=== PATIENT | female | born 1985 | race Hispanic/Latino ===

== ENCOUNTER 2020-08-26 10:10 | Outpatient (CLI) | payer MEDICAID ==
[2020-08-26 10:52] LABS: Basophils % (Auto) 0.4 % (0.0-1.8); Eosinophils # (Auto) 0.1 K/mm3 (0.0-0.4); Eosinophils % (Auto) 1.1 % (0.0-4.3); Hematocrit 38.8 % (30.3-42.9); Hemoglobin 13.2 gm/dl (10.1-14.3); Lymphocytes % (Auto) 22.5 % (13.4-35.0); Mean Corpuscular HGB Conc 34 % (30-34); Mean Corpuscular Volume 82 fl (79-97); Monocytes # (Auto) 0.5 K/mm3 (0.0-0.8); Monocytes % (Auto) 5.9 % (0.0-7.3); Platelet Count 187 K/mm3 (140-440); Red Blood Count 4.72 M/mm3 (3.65-5.03); Red Cell Distribution Width 13.7 % (13.2-15.2)
[2020-08-26 11:19] LABS: % Iron Saturation 23.45 %; Alanine Aminotransferase 13 units/L (7-56); Albumin 4.3 g/dL (3.9-5); Blood Urea Nitrogen 14 mg/dL (7-17); Calcium 9.2 mg/dL (8.4-10.2); Chol/HDL Ratio 2.76 %; HDL Cholesterol 52 mg/dL (40-59); Hemolysis Index 2; Iron 68 ug/dL (37-170); LDL Cholesterol,Direct 94 mg/dL (50-130); Total Iron Binding Capacity 290 mcg/dL (250-450)
[2020-08-26 11:20] LABS: BUN/Creatinine Ratio 20
== END 2020-08-26 10:11 | disposition home or self-care (01) ==
LOC: LAB 10:10
PROVIDERS: ATTEND Surgery
DX: K30 Functional dyspepsia (principal); E66.01 Morbid (severe) obesity due to excess calories; E11.9 Type 2 diabetes mellitus without complications
CPT/HCPCS: 36415; 80053; 80061; 82306; 82607; 82728; 83036; 83550; 84443; 85025; 85730

== ENCOUNTER 2020-09-06 06:57 | Outpatient (CLI) | payer MEDICAID ==
--- NOTE | 2020-09-06 09:06 | Fluoroscopy Report ---
UPPER GI HISTORY: FUNCTIONAL DYSPEPSIA. TECHNIQUE: Single and double contrast barium technique utilized to evaluate the esophagus, stomach, and duodenal C-loop. FINDINGS: To begin the exam, swallowing was evaluated in the lateral position under direct fluorosco py. Swallowing was normal. No mucosal irregularity, mass, mass effect, or critical stenosis. There were no abnormal tertiary c ontractions as seen with dysmotility. No gastroesophageal reflux. IMPRESSION: Unremarkable exam. Fluoroscopic time: 2.4 minutes Number of fluoroscopic images: 21 Signer Name: Glen Faye Jr, MD Signed: 09/06/2020 9:02 AM Workstation Name: [id number]
== END 2020-09-06 06:58 | disposition home or self-care (01) ==
LOC: FLUORO 06:57
PROVIDERS: ATTEND Surgery
DX: K30 Functional dyspepsia (principal)
CPT/HCPCS: 74246

== ENCOUNTER 2020-09-14 07:08 | Day surgery (SDC) | payer MEDICAID ==
[~2020-09-14 07:08] MED LIST: SODIUM CHLORIDE 0.9% 1000 ML 1,000 ML IV SCH
--- NOTE | 2020-09-14 07:56 | Anesthesia Day of Surgery ---
Anesthesia Day of Surgery - Day of Surgery Patient Examined: Yes Patient H&P Reviewed: Yes Patient is NPO: Yes
--- NOTE | 2020-09-14 07:57 | Anesthesia Consultation ---
Anesthesia Consult and Med Hx Date of service: 09/14/20 - Airway Anesthetic Teeth Evaluation: Good ROM Head & Neck: Adequate Mental/Hyoid Distance: Adequate Mallampati Class: Class II Intubation Access Assessment: Good - Pre-Operative Health Status ASA Pre-Surgery Classification: ASA3 Proposed Anesthetic Plan: MAC - Pulmonary Hx Sleep Apnea: No - Cardiovascular System Hx Hypertension: No - Gastrointestinal Hx Gastroesophageal Reflux Disease: No - Endocrine Hx Renal Disease: No Hx Non-Insulin Dependent Diabetes: No - Other Systems Hx Obesity: Yes
[2020-09-14] MEDS ORDERED: ONDANSETRON 4 MG/2 ML INJ ONE (08:15)
[2020-09-14] MEDS ORDERED: LIDOCAINE MPF (2%) 20 MG/1 ML VIAL 5 ML ONE (08:15)
[2020-09-14] MEDS ORDERED: propofoL 200 MG/20 ML VIAL IV ONE (08:16)
[2020-09-14] MEDS ORDERED: fentaNYL 100 MCG/2 ML INJ ONE (08:16)
--- NOTE | 2020-09-14 08:21 | Discharge Summary ---
Providers - Providers Date of Admission: 09/14/2020 Date of discharge: 09/14/20 Attending physician: AVNI ROLLE MD Hospitalization Reason for admission: egd Condition: Good Procedures: egd with bx Hospital course: Pt presented for a pre-op EGD as part of planning for up coming bariatric surgery. Procedure was uneventful and pt recovered well and was discharged to home. Disposition: - TO HOME OR SELFCARE Final Discharge Diagnosis (Prints w/discharge instructions): morbid obesity, dys pepsia Core Measure Documentation - Palliative Care Palliative Care/ Comfort Measures: Not Applicable - Core Measures Any of the following diagnoses?: none Exam - Physical Exam Narrative exam: unchanged from pre-op Plan Diet: low carbohydrate Follow up with: FORD DOYLE [Other] - 7 Days
--- NOTE | 2020-09-14 08:22 | Operative Report ---
Operative Report Operative Report: DATE: 09/14/2020 SURGERY: Upper endoscopy. SURGEON: Yamileth Huggins M.D. PROCEDURE: EGD with biopsy PRE OP DX: morbid obesity, GERD POST OP DX: morbid obesity, GERD TYPE OF ANESTHESIA: MAC. ESTIMATED BLOOD LOSS: None. COMPLICATIONS: None. SPECIMENS REMOVED: antral biopsy FINDINGS: 1. Small hiatal hernia. 2. Otherwise, normal esophagus, stomach and first portion of duodenum. INDICATIONS:INDICATION FOR PROCEDURE: Patient is a 35-year-old female with a long history of morbid obesity. She is planned to have a weight loss procedure and is here for preoperative planning EGD. PROCEDURE DETAILS: After consent was reviewed, patient was taken back to the operating room where patient was placed in the left lateral decubitus position and a bite block was placed in the mouth. After a time-out was called, MAC anesthesia was initiated. I then passed the endoscope into her oropharynx, into her esophagus, visualized the entire esophagus, which was all within normal limits. Z-line was noted to about 40cm from incisors. I then visualized the stomach and the first portion of the duodenum and there were no abnormalities I could clearly visualize. A cold forceps biopsy of the antrum was taken and will be sent to pathology to evaluate for H.pylori. I then retroflexed the scope in the stomach and visualized the hiatus and I could see a small hiatal hernia. I then desufflated the stomach and removed the endoscope. Patient tolerated procedure well and was transferred to recovery room in good and stable condition.
[2020-09-14 09:33] VITALS: BP 144/91
--- NOTE | 2020-09-14 15:02 | Post Anesthesia Evaluation ---
- Post Anesthesia Evaluation Patient Participated: Yes Airway Patent: Yes Stable Respiratory Function: Yes Nausea/Vomiting: No Temp > 96.8F: Yes Pain Manageable: Yes Adequeate Hydration: Yes Anesthesia Complications: No Block Receding Appropriately: Not Applicable Patient on Ventilator: No
== END 2020-09-14 07:09 | disposition home or self-care (01) ==
LOC: GIO 07:08
PROVIDERS: ATTEND Surgery
DX: K21.9 Gastro-esophageal reflux disease without esophagitis (principal); E66.01 Morbid (severe) obesity due to excess calories; K44.9 Diaphragmatic hernia without obstruction or gangrene; K30 Functional dyspepsia; Z79.899 Other long term (current) drug therapy; Z68.42 Body mass index [BMI] 45.0-49.9, adult
CPT/HCPCS: 43239; 81025; 88305; 88342; J2405; J2704; J3010; J7030

== ENCOUNTER 2020-10-11 07:06 | Inpatient (IN) | payer MEDICAID ==
[~2020-10-11 07:06] MED LIST changes: +BUPIVACAINE/PF (0.25%) 2.5 MG/ML 30 ML VIAL INFILTRATI ONE; +ENOXAPARIN 40 MG/0.4 ML INJ SUB-Q NR; +LIDOCAINE 1%/EPINEPHRINE 1:100,000 VIAL (20 ML) INFILTRATI ONE; -SODIUM CHLORIDE 0.9% 1000 ML 1,000 ML IV SCH; +SODIUM CHLORIDE 0.9% IRR 1,500 ML BOTTLE IR ONE; +ceFAZolin/Water 2 GM/20 ML 2 GM/20 ML SYRINGE IV NR; +metroNIDAZOLE/NS 500 MG/100 ML 500 MG/100 ML BAG IV NR
[2020-10-11] MEDS ORDERED: LACTATED RINGERS 1,000 ML IV SCH (08:45)
[2020-10-11] MEDS ORDERED: ENOXAPARIN 40 MG/0.4 ML INJ SUB-Q NR (09:00)
[2020-10-11] MEDS ORDERED: GABAPENTIN 500 MG/10 ML ORAL LIQD PO SCH (09:00)
[2020-10-11] MEDS ORDERED: ACETAMINOPHEN IV 1,000 MG/100 ML BOTTLE IV NR (09:00)
--- NOTE | 2020-10-11 09:18 | Anesthesia Day of Surgery ---
Anesthesia Day of Surgery - Day of Surgery Patient Examined: Yes Patient H&P Reviewed: Yes Patient is NPO: Yes
[2020-10-11] MEDS ORDERED: HYDROmorphone 1 MG/1 ML INJ IV PRN (09:30)
[2020-10-11] MEDS ORDERED: ONDANSETRON 4 MG/2 ML INJ IV PRN (09:30)
[2020-10-11] MEDS ORDERED: SUGAMMADEX SODIUM 200 MG/2 ML VIAL IV ONE (09:59)
[2020-10-11] MEDS ORDERED: MAGNESIUM SULFATE 2 GM/50 ML BAG IV ONE (09:59)
[2020-10-11] MEDS ORDERED: SCOPOLAMINE TRANSDERMAL PATCH 72 HR TD SCH (10:00)
[2020-10-11] MEDS ORDERED: MIDAZOLAM 2 MG/2 ML INJ IV NR (10:00)
[2020-10-11] MEDS ORDERED: ROCURONIUM 50 MG/5 ML INJ IV ONE ×2 (10:08→10:28)
[2020-10-11] MEDS ORDERED: BUPIVACAINE/PF (0.25%) 2.5 MG/ML 30 ML VIAL INFILTRATI ONE ×2 (10:26→11:34)
[2020-10-11] MEDS ORDERED: LIDOCAINE 1%/EPINEPHRINE 1:100,000 VIAL (20 ML) INFILTRATI ONE ×2 (10:26→11:34)
[2020-10-11] MEDS ORDERED: KETAMINE/STERILE WATER 50 MG/ML SYRINGE ONE (10:28)
[2020-10-11] MEDS ORDERED: LIDOCAINE MPF (2%) 20 MG/1 ML VIAL 5 ML ONE (10:28)
[2020-10-11] MEDS ORDERED: KETOROLAC 30 MG/1 ML INJ ONE (10:28)
[2020-10-11] MEDS ORDERED: ONDANSETRON 4 MG/2 ML INJ ONE (10:28)
[2020-10-11] MEDS ORDERED: PHENYLEPHRINE/NS 1,000 MCG/10 ML SYRINGE (OR USE) IV ONE (10:30)
[2020-10-11] MEDS ORDERED: SODIUM CHLORIDE 0.9% IRR 1,500 ML BOTTLE IR ONE (11:34)
[2020-10-11] MEDS ORDERED: SODIUM CHLORIDE 0.9% IRRIG SOLN 2000 ML IR ONE (12:26)
--- NOTE | 2020-10-11 13:19 | Operative Report ---
Operative Report Operative Report: DATE: 10/11/2020 Surgeon: Yamileth Huggins MD Debug Technician surgeon: Regis Benitez CSA md Pre-op Dx: morbid obesity Post-op Dx: morbid obesity Procedure: 1. laparoscopic sleeve gastrectomy, 2. hiatal hernia repair Anesthesia: GETA and TAP block EBL: <10ml Specimen: gastric remnant Complication: none immediate Indication: 35 year old female with a history of morbid obesity . Pt is here for sleeve gastrectomy for weight loss to achieve healthier weight and improve or resolve his co-morbidities. She expressed understanding of the risks and benefits. PROCEDURE IN DETAIL: After consent was reviewed, patient was taken back to the operating room, where patient was placed supine on the bed with both arms out. The patient's legs were doubly strapped to the bed. Patient had a foot board in place. Patient had a body warmer placed by anesthesia. General anesthesia was induced with successful endotracheal intubation. Patient was then prepped and draped in normal sterile surgical fashion. After a time-out was called, I made a stab incision in the left subcostal area and placed a Veress needle through this incision and insufflated the abdomen to 18 mmHg pressure. I then counted down a handsbreadth below the xiphoid process in the midline and slightly left lateral injected local anesthetic and made about 1 cm transverse incision. I then used a 5-mm Optiview trocar to enter into the abdomen. There was no gross injury to any intra-abdominal structures. I then placed a 30-degree scope through this port and inspected the abdomen. I then placed a 8-mm port in the right upper quadrant, and 1 5mm in the epigastric area below the costovertebral angle. I then placed a 15-mm port about a handsbreadth in the right mid abdomen. After which a 5mm port was placed in left upper quadrant port along the anterior axillary line in a similar fashion. A liver retractor was placed to the epigastric port to elevate the left lateral lobe and liver. There was a small hiatal hernia appreciated that was accentuated with right and left crural dissection. Hiatal hernia sac was dissected from the crura until the GE junction was resting about 2cm below the level of the diaphragm without tension. An anterior crura-plasty was preformed a U-stitch using surgidac suture. The anterior gastric fat pad was excised. Starting approximately 6 cm proximal to the pylorus, using a LigaSure device the short gastrics were taken all the way to the left sohail. Once the lateral portion of the stomach was mobile anesthesia passed a 40 Turkmen bougie along the medial aspect to act as a stent. Using serial firings of endoscopic stapler to gold, followed by 4 blue, the lateral portion of the stomach was transected making sure to did not close to the 2 cm to the incisura. All staple loads were supported with Ethicon buttress strips. The sleeve stomach was seen to be without kink obstruction or twisting. The pr essure was decreased to 10 mmHg. The staple line was inspected for approximately 5 minutes. There was no significant bleeding appreciated except for a slight loose at the most distal portion of the staple line. Bleeding was minimal and easily controlled with minimal cautery. Tisseel was then sprayed along the entirety of the staple line. The liver retractor was removed. A TAP block was performed with 60ml of 0.25% marcaine along bilateral mid axillary lines starting from the subcostal region to just below the level of the umbilicus This was after the gastric remnant was grasped and pulled into the 15 mm trocar site. The stomach was extracted via the 15 mm trocar site. After the fascia had to be stretched with a Daisha clamp to easily remove the stomach, the fascia was closed using a renny kashif device at the level of the fascia with an 0 PDS. trocars were removed under direct visualization. All skin incisions were closed with 4-0 Monocryl followed by Dermabond. Patient was awoken, extubated, and taken to recovery stable condition. All counts were correct.
[2020-10-11] MEDS ORDERED: dexAMETHasone 20 MG/5 ML VIAL ONE (13:25)
[2020-10-11] MEDS ORDERED: SIMETHICONE 80 MG CHEW TAB PO PRN (13:30)
[2020-10-11] MEDS ORDERED: hydrALAZINE 20 MG/1 ML INJ IV PRN (13:30)
[2020-10-11] MEDS ORDERED: MORPHINE 2 MG/1 ML INJ IV PRN (13:30)
[2020-10-11] MEDS: KETOROLAC 30 MG/1 ML INJ IV SCH ×2 (14:08→20:04)
[2020-10-11] MEDS: HYDROmorphone 1 MG/1 ML INJ IV PRN ×2 (14:14→14:29)
[2020-10-11] MEDS: ACETAMINOPHEN IV 1,000 MG/100 ML BOTTLE IV SCH ×2 (14:59→20:05)
[2020-10-11] MEDS: PANTOPRAZOLE 40 MG INJ IV SCH (16:28)
[2020-10-11] MEDS: METOCLOPRAMIDE 10 MG/2 ML INJ IV PRN ×2 (16:28→23:33)
[2020-10-11] MEDS: ONDANSETRON 4 MG/2 ML INJ IV PRN ×2 (20:04→20:08)
[2020-10-11] MEDS: LACTATED RINGERS 1,000 ML IV SCH (20:07)
[2020-10-12] MEDS: ACETAMINOPHEN IV 1,000 MG/100 ML BOTTLE IV SCH ×2 (01:59→07:10)
[2020-10-12] MEDS: KETOROLAC 30 MG/1 ML INJ IV SCH ×3 (02:00→14:13)
[2020-10-12] MEDS: LACTATED RINGERS 1,000 ML IV SCH ×2 (02:15→10:22)
[2020-10-12 04:52] LABS: Basophils % (Auto) 0.1 % (0.0-1.8); Hematocrit 36.3 % (30.3-42.9); Hemoglobin 12.2 gm/dl (10.1-14.3); Lymphocytes # (Auto) 1.3 K/mm3 (1.2-5.4); Lymphocytes % (Auto) 11.7 % (13.4-35.0); Mean Corpuscular HGB Conc 34 % (30-34); Mean Corpuscular Volume 83 fl (79-97); Monocytes # (Auto) 0.8 K/mm3 (0.0-0.8); Monocytes % (Auto) 7.5 % (0.0-7.3); Platelet Count 130 K/mm3 (140-440); Red Blood Count 4.35 M/mm3 (3.65-5.03); Red Cell Distribution Width 13.4 % (13.2-15.2)
[2020-10-12 05:11] LABS: Alanine Aminotransferase 32 units/L (7-56); Albumin 3.8 g/dL (3.9-5); Blood Urea Nitrogen 12 mg/dL (7-17); Calcium 8.5 mg/dL (8.4-10.2); Hemolysis Index 1
[2020-10-12 05:24] LABS: BUN/Creatinine Ratio 20
--- OUTSIDE RECORDS SUMMARY | 2020-10-12 08:12 | External Medical Summary ---
:1985 Author Organization [facility], [facility] Address [address] [place] [id number] Care Team Providers Name Role Phone Yamileth Huggins Unavailable [phone] PROBLEMS Type Condition ICD9-CM [id number]-[id number] Onset Condition W/U Status Risk SNOM ED Notes Code Code Dates Status Code Problem Dietary Z71.3 Active confirmed 583816146 counseling and surveillance Problem Gastro-esopha K21.9 Active confirmed 823028 005 geal reflux disease without esophagitis Problem Morbid E66.01 Active confirmed 429162357 (severe) obesity due to excess calories Problem Functional K30 Active confirmed 9080994 dyspepsia Problem Body mass Z68.41 Active confirmed 144393744 index [BMI]40.0-44. 9, adult ALLERGIES No Known Allergies ENCOUNTERS from 1986 to 2020-10-11 Encounter Location Date Provider Diagnosis [address] September, [facility] [address] [id number] IMMUNIZATIONS No Information SOCIAL HISTORY Sex Assigned At : Social History Observation Description Sex Assigned At Unknown REASON FOR REFERRAL from 1985 to 2020-10-11 Diagnosis 1 Morbid (severe) obesity due to excess calories (E66.01) Diagnosis 2 Functional dyspepsia (K30) Diagnosis 3 Dietary counseling and surve illance (Z71.3) Diagnosis 4 Body mass index [BMI]40.0-44 .9, adult (Z68.41) Diagnosis 5 Gastro-esophageal reflux dis ease without esophagitis (K21.9) Referral Organization [facility] Referring Provider First Name Yamileth Referring Provider Last Name Bhavna Referring Provider Specialty Surgery Referred Provider [facility], - Referral Priority Routine VITAL SIGNS No information MEDICATIONS Medication SIG (Take, Route, Frequency, Notes Start Date End Vickey e Status Duration) Omeprazole 40 MG 1 capsule Orally Once a day for 16 Aug, 2 021 Active 30 day(s) Zofran 4 MG 1-2 tablet Orally q 4-6 hours prn Aug, Active nausea for 30 day(s) PROCEDURES No Information RESULTS No Results REASON FOR VISIT Gastric Sleeve MEDICAL (GENERAL) HISTORY Type Description Date Medical History dyspepsia Surgical History none Goals Section No Information Health Concerns No Information MEDICAL EQUIPMENT No Information MENTAL STATUS No Information FUNCTIONAL STATUS No Information ASSESSMENTS No Information PLAN OF TREATMENT Referrals Referral Date Details Insurance Providers Payer Name Payer Payer Insured Patient Coverage Coverage End Address Phone Name Relationship to Start Date Vickey e Insured [employer] [address] [address] [phone] Jenny Chowdary self [place] [id number]
[2020-10-12] MEDS ORDERED: ENOXAPARIN 40 MG/0.4 ML INJ SUB-Q SCH (10:00)
[2020-10-12] MEDS ORDERED: HYDROcodone/Acetaminophen 7.5-325MG-15ML ORAL LIQD PO PRN (10:00)
[2020-10-12] MEDS: PANTOPRAZOLE 40 MG INJ IV SCH (10:21)
[2020-10-12 11:55] VITALS: BP 134/85
--- NOTE | 2020-10-12 15:03 | Post Anesthesia Evaluation ---
- Post Anesthesia Evaluation Patient Participated: Yes Airway Patent: Yes Stable Respiratory Function: Yes Nausea/Vomiting: No Temp > 96.8F: Yes Pain Manageable: Yes Adequeate Hydration: Yes Anesthesia Complications: No Block Receding Appropriately: Yes Patient on Ventilator: No Other Comments: single episode of vomiting came after consuming multiple ice chips in the PACU. No N/V after
--- NOTE | 2020-10-12 16:23 | Discharge Summary ---
Providers - Providers Date of Admission: 10/11/20 07:52 Date of discharge: 10/12/20 Attending physician: AVNI ROLLE MD 10/11/20 13:15 Physical Therapy Evaluation and Treat [CONS] Routine Comment: Reason For Exam: post op bariatric surgery Primary care physician: [employer]AIL STOCK CLERK Hospitalization Reason for admission: s/p lap gastric sleeve Condition: Good Procedures: lap gastric sleeve with hiatal hernia repair Hospital course: Pt had an uneventful lap gastric sleeve with hiatal hernia repair. She did well post op with normal vital signs. She was tolerating clear liquids, ambulating well and had good pain control. She showed no clinical signs of leak or bleeding at time of discharge. Disposition: DC- TO HOME OR SELFCARE Final Discharge Diagnosis (Prints w/discharge instructions): morbid obesity Core Measure Documentation - Palliative Care Palliative Care/ Comfort Measures: Not Applicable - Core Measures Any of the following diagnoses?: none Exam - Constitutional Vitals: Temp Pulse Resp BP Pulse Ox 98.2 F 62 16 134/85 100 10/12/20 11:46 10/12/20 11:46 10/12/20 11:46 10/12/20 11:46 10/12/20 13:11 General appearance: Present: no acute distress - Respiratory Respiratory effort: normal - Cardiovascular Heart Sounds: Present: S1 & S2 - Extremities Extremities: no ischemia - Abdominal General gastrointestinal: Present: soft, non-tender, non-distended, other (incisions c/d/i) Plan Activity: advance as tolerated Diet: clear liquids Wound: open to air, keep clean and dry Follow up with: PRIMARY CAREMD [Primary Care Provider] - 7 Days
== END 2020-10-12 19:15 | disposition home or self-care (01) | DRG 621 ==
LOC: 3A 07:52 → 3B-SURG 12:12
PROVIDERS: ADMIT Surgery; ATTEND Surgery
PROC: 0DB64Z3 Excision of Stomach, Percutaneous Endoscopic Approach, Vertical (ICD-10-PCS; principal; 2020-10-11)
PROC: 0BQT4ZZ Repair Diaphragm, Percutaneous Endoscopic Approach (ICD-10-PCS; 2020-10-11)
DX: E66.01 Morbid (severe) obesity due to excess calories (principal); K44.9 Diaphragmatic hernia without obstruction or gangrene; Z71.3 Dietary counseling and surveillance; Z68.41 Body mass index [BMI] 40.0-44.9, adult; Z82.49 Family history of ischemic heart disease and other diseases of the circulatory system
CPT/HCPCS: 36415; 80053; 81025; 85025; 88307; 88342; G0378; A4217; C9113; J0131; J1100; J1170; J1650; J1885; J2250; J2270; J2370; J2405; J2704; J2765; J3475; J3490; J7120